=== PATIENT | male | born 1995 | race Caucasian/White ===

== ENCOUNTER 2016-06-18 12:03 | Emergency (ER) | payer BC ==
--- NOTE | 2016-06-18 12:15 | ER Document Report ---
ED Medical Screen (RME) - General Stated Complaint: LEG CRAMPING Time seen by provider: 12:13 Mode of Arrival: Ambulatory Information source: Patient Notes: 20-year-old male presents to ED for leg cramping. He states he did leg exercises yesterday. Cramping started this morning. Said he had a migraine last night which interrupted his sleep. And his urine is a little dark this morning. He states she's had the cramping after exercise before but not this bad. I have greeted and performed a rapid initial assessment of this patient. A comprehensive ED assessment and evaluation of the patient, analysis of test results and completion of medical decision making process will be conducted by an additional ED providers. Physical Exam - Vital signs Vitals: Temp Pulse Resp BP Pulse Ox 97.8 F 95 H 18 135/71 H 99 06/18/16 12:07 06/18/16 12:07 06/18/16 12:07 06/18/16 12:07 06/18/16 12:07 Course - Vital Signs Vital signs: Temp Pulse Resp BP Pulse Ox 97.8 F 95 H 18 135/71 H 99 06/18/16 12:07 06/18/16 12:07 06/18/16 12:07 06/18/16 12:07 06/18/16 12:07
[2016-06-18 12:52] LABS: ABSOLUTE LYMPHOCYTES (AUTO) 2.1 10^3/uL (0.5-4.7); ABSOLUTE MONOCYTES (AUTO) 0.5 10^3/uL (0.1-1.4); ABSOLUTE NEUT (AUTO) 4.4 10^3/uL (1.7-8.2); BASOPHILS % (AUTO) 0.2 % (0-2); EOSINOPHILS % (AUTO) 0.6 % (0-6); HEMATOCRIT 47.7 % (37.9-51.0); HEMOGLOBIN 16.4 g/dL (13.5-17.0); HGB HCT DIFFERENCE 1.5; LYMPHOCYTES % (AUTO) 29.3 % (13-45); MEAN CORPUSCULAR HEMOGLOBIN 29.7 pg (27.0-33.4); MEAN CORPUSCULAR HGB CONC 34.4 g/dL (32.0-36.0); MEAN CORPUSCULAR VOLUME 86 fl (80-97); MONOCYTES % (AUTO) 6.7 % (3-13); RED BLOOD COUNT 5.52 10^6/uL (4.35-5.55); SEGMENTED NEUTROPHILS % (AUTO) 63.2 % (42-78)
[2016-06-18 13:03] LABS: APPEARANCE,URINE CLEAR; BILIRUBIN,URINE NEGATIVE (NEGATIVE); GLUCOSE, URINE NEGATIVE (NEGATIVE); KETONES,URINE NEGATIVE (NEGATIVE); LEUKOCYTE ESTERASE,URINE NEGATIVE (NEGATIVE); NITRITE,URINE NEGATIVE (NEGATIVE); PROTEIN,URINE NEGATIVE (NEGATIVE); URINE SPECIFIC GRAVITY 1.023; UROBILINOGEN,URINE NEGATIVE mg/dL (<2.0)
[2016-06-18] MEDS ORDERED: NORMAL SALINE 1000 ML 1,000 ML IV ONE ×2 (13:16→13:43)
[2016-06-18] MEDS ORDERED: DIAZEPAM INJ 10 MG/2 ML DISP.SYRIN IV ONE (13:17)
[2016-06-18 13:18] LABS: ALANINE AMINOTRANSFERASE 29 U/L (10-40); ALBUMIN 4.6 g/dL (3.7-5.6); ALKALINE PHOSPHATASE 61 U/L (65-260); ANION GAP 15 (5-19); ASPARTATE AMINO TRANSFERASE 77 U/L (10-45); BILIRUBIN,DIRECT 0.2 mg/dL (0.0-0.4); BILIRUBIN,TOTAL 0.5 mg/dL (0.2-1.3); BLOOD UREA NITROGEN 14 mg/dL (7-20); CALCIUM 9.9 mg/dL (8.4-10.2); CARBON DIOXIDE 24 mmol/L (22-30); CHLORIDE 102 mmol/L (98-107); CREATINE KINASE 1585 U/L (55-170); CREATININE RESULT 1.31 mg/dL (0.52-1.25); GLUCOSE 87 mg/dL (75-110); POTASSIUM 4.7 mmol/L (3.6-5.0); SODIUM 140.9 mmol/L (137-145); TOTAL PROTEIN 7.4 g/dL (6.3-8.2)
--- NOTE | 2016-06-18 13:19 | ER Document Report ---
HPI - HPI Patient complains to provider of: leg cramps Onset: Yesterday Onset/Duration: Persistent Quality of pain: Cramping Pain Level: 3 Context: Patient states that he works out daily and also works as a outpatient physical therapist. Patient does report taking multiple [id number] diet supplements. Patient states that he had an extensive leg workout yesterday. Patient complains of nausea and vomiting that started last night with a headache as well as leg cramps. Patient states that he has persisted with leg cramps today. Patient states he's had similar episodes in the past whenever he was dehydrated and worked out too hard. Associated Symptoms: Headache, Nausea, Vomiting, Other - Leg cramps. denies: Nonproductive cough, Fever, Shortness of breath - Yesterday, now better Exacerbated by: Movement Relieved by: Denies Similar symptoms previously: Yes Recently seen / treated by doctor: No - ROS ROS below otherwise negative: Yes Systems Reviewed and Negative: Yes All other systems reviewed and negative - CONSTITUTIONAL Constitutional: DENIES: Fever, Chills - NEURO Neurology: REPORTS: Headache. DENIES: Weakness - CARDIOVASCULAR Cardiovascular: DENIES: Chest pain - RESPIRATORY Respiratory: DENIES: Coughing - GASTROINTESTINAL Gastrointestinal: REPORTS: Nausea, Patient vomiting. DENIES: Abdominal Pain - MUSCULOSKELETAL Musculoskeletal: REPORTS: Extremity pain. DENIES: Swelling - DERM Skin Color: Normal Skin Problems: None Past Medical History - General Information source: Patient - Social History Smoking Status: Never Smoker Chew tobacco use (# tins/day): No Frequency of alcohol use: None Drug Abuse: None Occupation: outpatient physical therapist Lives with: Family Family History: Reviewed & Not Pertinent Patient has suicidal ideation: No Patient has homicidal ideation: No Neurological Medical History: Reports: Hx Migraine Renal/ Medical History: Denies: Hx Peritoneal Dialysis Past Surgical History: Reports: Hx Orthopedic Surgery Vertical Provider Document - CONSTITUTIONAL Agree With Documented VS: Yes Exam Limitations: No Limitations General Appearance: WD/WN, No Apparent Distress - INFECTION CONTROL TRAVEL OUTSIDE OF THE [place] IN LAST 30 DAYS: No - HEENT HEENT: Atraumatic, Normocephalic - NECK Neck: Normal Inspection, Supple - RESPIRATORY Respiratory: Breath Sounds Normal, No Respiratory Distress, Chest Non-Tender O2 Sat by Pulse Oximetry: 99 - CARDIOVASCULAR Cardiovascular: Regular Rate, Regular Rhythm, No Murmur Pulses: Normal: Posterior tibial - BACK Back: Normal Inspection - MUSCULOSKELETAL/EXTREMETIES Musculoskeletal/Extremeties: BETTIE FROM Notes: Patient with visible, active muscle spasms involving his quadriceps of the left lower Tammy and left gastrocnemius - NEURO Level of Consciousness: Awake, Alert, Appropriate Motor/Sensory: No Motor Deficit - DERM Integumentary: Warm, Dry, No Rash Course - Re-evaluation Re-evalutation: 06/18/16 13:[address] Darnell regarding patient presentation and exam findings. Recommends outpatient follow-up in 4 days for repeat blood work testing to recheck his CK and creatinine test. 06/18/16 15:02 Leg cramping resolved. Patient and family advised that patient should not return to athletic workouts or taking his supplements until cleared by his primary doctor. Patient advised that he will need repeat blood tests in 4 days to have his lab work reevaluated. - Vital Signs Vital signs: Temp Pulse Resp BP Pulse Ox 97.8 F 95 H 18 135/71 H 99 06/18/16 12:07 06/18/16 12:07 06/18/16 12:07 06/18/16 12:07 06/18/16 12:07 - Laboratory Result Diagrams: 06/18/16 12:20 06/18/16 12:20 Laboratory results interpreted by me: 06/18/16 15:03 06/18/16 15:03 Labs- Entire Visit 06/18/16 06/18/16 06/18/16 12:20 12:20 12:20 WBC 7.0 RBC 5.52 Hgb 16.4 Hct 47.7 MCV 86 MCH 29.7 MCHC 34.4 RDW 13.0 Plt Count 299 Seg Neutrophils % 63.2 Lymphocytes % 29.3 Monocytes % 6.7 Eosinophils % 0.6 Basophils % 0.2 Absolute Neutrophils 4.4 Absolute Lymphocytes 2.1 Absolute Monocytes 0.5 Absolute Eosinophils 0.0 Absolute Basophils 0.0 Sodium 140.9 Potassium 4.7 Chloride 102 Carbon Dioxide 24 Anion Gap 15 BUN 14 Creatinine 1.31 H Est GFR ( Amer) > 60 Est GFR (Non-Af Amer) > 60 Glucose 87 Calcium 9.9 Magnesium 2.1 Total Bilirubin 0.5 Direct Bilirubin 0.2 Indirect Bilirubin Not Reportable Neonat Total Bilirubin Not Reportable AST 77 H ALT 29 Alkaline Phosphatase 61 L Creatine Kinase 1585 H Total Protein 7.4 Albumin 4.6 Urine Color Urine Appearance Urine pH Ur Specific [place] Urine Protein Urine Glucose (UA) Urine Ketones Urine Blood Urine Nitrite Urine Bilirubin Urine Urobilinogen Ur Leukocyte Esterase Urine WBC (Auto) Urine RBC (Auto) Urine Ascorbic Acid 06/18/16 12:21 WBC RBC Hgb Hct MCV MCH MCHC RDW Plt Count Seg Neutrophils % Lymphocytes % Monocytes % Eosinophils % Basophils % Absolute Neutrophils Absolute Lymphocytes Absolute Monocytes Absolute Eosinophils Absolute Basophils Sodium Potassium Chloride Carbon Dioxide Anion Gap BUN Creatinine Est GFR ( Amer) Est GFR (Non-Af Amer) Glucose Calcium Magnesium Total Bilirubin Direct Bilirubin Indirect Bilirubin Neonat Total Bilirubin AST ALT Alkaline Phosphatase Creatine Kinase Total Protein Albumin Urine Color YELLOW Urine Appearance CLEAR Urine pH 6.0 Ur Specific [place] 1.023 Urine Protein NEGATIVE Urine Glucose (UA) NEGATIVE Urine Ketones NEGATIVE Urine Blood NEGATIVE Urine Nitrite NEGATIVE Urine Bilirubin NEGATIVE Urine Urobilinogen NEGATIVE Ur Leukocyte Esterase NEGATIVE Urine WBC (Auto) 2 Urine RBC (Auto) 2 Urine Ascorbic Acid NEGATIVE 06/18/16 19:16 Discharge - Discharge Clinical Impression: Abnormal renal function test Leg cramps Qualifiers: Laterality: unspecified laterality Qualified Code(s): R25.2 - Cramp and spasm Condition: Stable Disposition: HOME, SELF-CARE Instructions: Leg Cramps ([facility]), Kidney Function Abnormality ([facility]), Liver Function Abnormality ([facility]) Additional Instructions: Return immediately for any new or worsening symptoms Followup with your primary care provider, [facility], call tomorrow to make a followup appointment No physical exerting activities or workouts until cleared by her primary doctor. Recheck with your primary doctor to have your blood tests repeated in the next 4 days, call today for an appointment time. Stay well-hydrated Do not take any dietary supplements until cleared to do so by your primary doctor. Prescriptions: Diazepam [Valium 5 mg Tablet] 5 mg PO TID PRN #15 tablet PRN Reason: Forms: Return to Work
[2016-06-18 13:49] LABS: ADD ON TESTING BLD IN LAB ACKNOWLEDGE
[2016-06-18 14:13] LABS: MAGNESIUM 2.1 mg/dL (1.6-2.3)
[2016-06-18 15:17] VITALS: BP 130/70
== END 2016-06-18 15:17 | disposition home or self-care (01) ==
LOC: ER 12:03
DX: R94.4 Abnormal results of kidney function studies (principal); R25.2 Cramp and spasm; R11.2 Nausea with vomiting, unspecified; R51 Headache
CPT/HCPCS: 99283; 96361; 96374; 36415; 82550; 83735; 85025; 80053; 81001; J3360; J7030

== ENCOUNTER 2018-12-16 15:41 | Emergency (ER) | payer BC ==
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
[2018-12-16] MEDS ORDERED: HYDROXYZINE PAMOATE 50 MG CAPSULE PO ONE (16:52)
[2018-12-16 17:11] LABS: AMORPHOUS SEDIMENT,URINE TRACE /HPF; APPEARANCE,URINE CLOUDY; BILIRUBIN,URINE NEGATIVE (NEGATIVE); COLOR,URINE YELLOW; GLUCOSE, URINE NEGATIVE (NEGATIVE); KETONES,URINE NEGATIVE (NEGATIVE); LEUKOCYTE ESTERASE,URINE NEGATIVE (NEGATIVE); NITRITE,URINE NEGATIVE (NEGATIVE); PROTEIN,URINE NEGATIVE (NEGATIVE); URINE SPECIFIC GRAVITY 1.011; UROBILINOGEN,URINE NEGATIVE mg/dL (<2.0)
[2018-12-16 17:22] LABS: URINE AMPHETAMINES SCREEN NEGATIVE; URINE BARBITURATES SCREEN NEGATIVE; URINE BENZODIAZEPINES SCREEN NEGATIVE; URINE COCAINE SCREEN NEGATIVE; URINE MARIJUANA (THC) SCREEN NEGATIVE; URINE METHADONE SCREEN NEGATIVE; URINE PHENCYCLIDINE SCREEN NEGATIVE
[2018-12-16 17:31] LABS: ABSOLUTE LYMPHOCYTES (AUTO) 1.5 10^3/uL (0.5-4.7); ABSOLUTE MONOCYTES (AUTO) 0.4 10^3/uL (0.1-1.4); ABSOLUTE NEUT (AUTO) 4.7 10^3/uL (1.7-8.2); BASOPHILS % (AUTO) 0.3 % (0-2); EOSINOPHILS % (AUTO) 0.4 % (0-6); HEMATOCRIT 45.3 % (37.9-51.0); HEMOGLOBIN 15.8 g/dL (13.5-17.0); LYMPHOCYTES % (AUTO) 21.9 % (13-45); MEAN CORPUSCULAR HEMOGLOBIN 30.6 pg (27.0-33.4); MEAN CORPUSCULAR HGB CONC 34.9 g/dL (32.0-36.0); MEAN CORPUSCULAR VOLUME 88 fl (80-97); MONOCYTES % (AUTO) 6.5 % (3-13); PLATELET COUNT 246 10^3/uL (150-450); RED BLOOD COUNT 5.15 10^6/uL (4.35-5.55); SEGMENTED NEUTROPHILS % (AUTO) 70.9 % (42-78); TOTAL CELLS COUNTED % (AUTO) 100 %; WHITE BLOOD COUNT 6.6 10^3/uL (4.0-10.5)
[2018-12-16 17:45] LABS: ALBUMIN 4.7 g/dL (3.5-5.0); ALKALINE PHOSPHATASE 43 U/L (38-126); ANION GAP 9 (5-19); ASPARTATE AMINO TRANSFERASE 29 U/L (17-59); BILIRUBIN,DIRECT 0.1 mg/dL (0.0-0.4); BILIRUBIN,TOTAL 0.7 mg/dL (0.2-1.3); BLOOD UREA NITROGEN 13 mg/dL (7-20); CARBON DIOXIDE 27 mmol/L (22-30); CHLORIDE 105 mmol/L (98-107); GLUCOSE 78 mg/dL (75-110); TOTAL PROTEIN 7.6 g/dL (6.3-8.2)
[2018-12-16 17:49] LABS: ACETAMINOPHEN < 10 ug/mL (10-30); ALCOHOL < 10 mg/dL (NONE DETECTED); SALICYLATE < 1.0 mg/dL (2.0-20.0)
[2018-12-16] MEDS ORDERED: HYDROXYZINE PAMOATE 50 MG CAPSULE PO PRN (18:17)
--- NOTE | 2018-12-17 09:12 | EKG REPORT ---
SEVERITY:- OTHERWISE NORMAL ECG - SINUS TACHYCARDIA : Confirmed by: Munira Barrera 17-Dec-2018 09:11:05
--- NOTE | 2018-12-17 10:37 | ER Document Report ---
Doctor's Note Notes: 12/17/18 10:36 I have evaluated this pt. this am and he has no c/o at this time. He feels all of his needs are being met and his physical exam is normal. He is awaiting disposition per mental health.
[2018-12-17 12:31] VITALS: BP 110/66
--- NOTE | 2018-12-17 12:45 | PSYCHOLOGICAL NOTE ---
Psych Note - Psych Note Date seen by psych provider: 12/17/18 Time seen by psych provider: 09:00 Psych Note: Patient is a 23-year-old male with a history of anxiety presents to emergency department with a chief complaint of anxiety and chest pain. Patient reports around 11 AM this morning he was at work when he developed left-sided chest pain and anxiety. Medication recommendations per [facility]'s contracted psychiatrist Dr. Ernestine MCDONALD as follows Zyprexa 2.5 mg twice daily Impression/Plan: Patient is recommended for rescind of IVC and is cleared from acute psychiatric services.
[2018-12-17] MEDS ORDERED: OLANZAPINE 2.5 MG TABLET PO ONE (13:00)
== END 2018-12-17 13:40 | disposition home or self-care (01) ==
LOC: ER 15:41
DX: F41.9 Anxiety disorder, unspecified (principal); R45.851 Suicidal ideations; R07.9 Chest pain, unspecified; R06.02 Shortness of breath; R42 Dizziness and giddiness; F17.200 Nicotine dependence, unspecified, uncomplicated
CPT/HCPCS: 93005; 99284; 36415; 80307 ×4; 85025; 80053; 81001; 93010; J3490